=== PATIENT | female | born 2000 | race Caucasian/White ===

== ENCOUNTER → 2020-05-18 | Outpatient (CLI) | payer BC, OTHER | LOC: ULTRA 08:25 | PROVIDERS: ATTEND Nurse Practitioner | DX: K86.89 Other specified diseases of pancreas (principal); R10.11 Right upper quadrant pain ==

== ENCOUNTER → 2020-06-24 | Outpatient (CLI) | payer BC, OTHER | LOC: NUC 07:42 | PROVIDERS: ATTEND Nurse Practitioner | DX: R10.10 Upper abdominal pain, unspecified (principal) ==

== ENCOUNTER → 2020-12-14 | Outpatient (CLI) | payer BC, OTHER | LOC: LAB 08:28 | PROVIDERS: ATTEND Anesthesiology | DX: Z01.812 Encounter for preprocedural laboratory examination (principal); Z20.822 Contact with and (suspected) exposure to COVID-19 ==